=== PATIENT | female | born 1950 | race Caucasian/White ===

== ENCOUNTER 2018-09-13 16:07 | Emergency (ER) | payer MEDICARE ==
[~2018-09-13] VITALS: Ht 157.5 cm; Wt 99.8 kg
[2018-09-13 16:30] VITALS: BP_SYST 126
[2018-09-13 17:30] LABS: BASOPHILS % (AUTO) 0.2 % (0.0-2.0); HEMATOCRIT 37.5 % (36-48); HEMOGLOBIN 11.9 g/dL (12.0-16.0); LYMPHOCYTES # (AUTO) 0.7 K/uL (1.0-5.5); LYMPHOCYTES % (AUTO) 4.2 % (20.5-51.5); MEAN CORPUSCULAR HEMOGLOBIN 30 pg (27-31); MEAN CORPUSCULAR HGB CONC 32 % (32-36); MEAN CORPUSCULAR VOLUME 93 fL (79.0-98.0); MONOCYTES # (AUTO) 0.9 K/uL (0.0-1.0); MONOCYTES % (AUTO) 5.4 % (1.7-9.3); NEUTROPHILS # (AUTO) 14.5 K/uL (1.8-7.7); NEUTROPHILS % (AUTO) 90.2 % (40.0-70.0); PLATELET COUNT (AUTO) 178 K/uL (130-430); RED BLOOD CELL COUNT(AUTO) 4.03 MIL/uL (4.2-6.2); WHITE BLOOD COUNT (AUTO) 16.1 K/uL (4.8-10.8)
[2018-09-13 17:43] LABS: CALCIUM 9.1 mg/dL (8.4-11.0); CREATININE 1.22 mg/dL (0.55-1.30); POTASSIUM 4.5 mmol/L (3.5-5.1)
[2018-09-13 17:47] LABS: ALBUMIN 2.3 g/dL (3.4-4.8); INR 1.5 (0.8-1.2); PROTHROMBIN TIME 15.2 SECS (9.5-12.5); TOTAL BILIRUBIN 1.2 mg/dL (0.0-1.0)
[2018-09-13] MEDS ORDERED: DILTIAZEM HCL 25 MG/5 ML VIAL IVP ONE (18:15)
[2018-09-13] MEDS ORDERED: PIPERACILLIN/TAZO 3.375 GM in NS 50 ML IV ONE (18:15)
[2018-09-13] MEDS ORDERED: metroNIDAZOLE 500 mg/NS 100 ML IV ONE (18:15)
[2018-09-13] MEDS ORDERED: NACL 0.9% 1,000 ML IV ONE (18:45)
[2018-09-13] MEDS ORDERED: DILTIAZEM HCL 25 MG/5 ML VIAL IVP PRN (19:15)
[2018-09-13] MEDS ORDERED: METOPROLOL SUCCINATE 25 MG TAB.SR.24H (TOPROL XL) PO ONE (19:15)
[2018-09-13] MEDS ORDERED: PIPERACILLIN/TAZOBACTAM 3.375 GM/VIAL (ZOSYN) IV ONE (19:30)
[2018-09-13 20:26] VITALS: BP_SYST 142
== END 2018-09-13 20:26 | disposition short-term general hospital (02) ==
LOC: SED 16:07
DX: K57.80 Diverticulitis of intestine, part unspecified, with perforation and abscess without bleeding (principal); I48.2 Chronic atrial fibrillation; J18.9 Pneumonia, unspecified organism
CPT/HCPCS: 36415; 71045; 74176; 80053; 82150; 82550; 83605; 83690; 83880; 84484; 85025; 85610; 85730; 93005; 96365; 96367; 96375; 99285; J2543; J3490 ×2

== ENCOUNTER 2018-11-05 22:00 | Emergency (ER) | payer MEDICARE ==
[~2018-11-05] VITALS: Ht 167.6 cm; Wt 113.4 kg
[2018-11-05 22:07] VITALS: BP_SYST 126
[2018-11-05] MEDS ORDERED: ONDANSETRON HCL 4 MG/2 ML VIAL IVP ONE (22:30)
[2018-11-05] MEDS ORDERED: TACR0.5C PO (22:41)
[2018-11-05] MEDS ORDERED: MULT-1117 PO (22:41)
[2018-11-05] MEDS ORDERED: FAMO20TA8 PO (22:41)
[2018-11-05] MEDS ORDERED: LISI-209 PO (22:41)
[2018-11-05] MEDS ORDERED: CALC0.258 PO (22:41)
[2018-11-05] MEDS ORDERED: CEL250 PO (22:41)
[2018-11-05] MEDS ORDERED: PRED5TAB PO (22:41)
[2018-11-05] MEDS ORDERED: METO25TA3 PO (22:41)
[2018-11-05] MEDS ORDERED: FURO-150 PO (22:41)
[2018-11-05] MEDS ORDERED: MAGN400T10 PO (22:41)
[2018-11-05] MEDS ORDERED: SYN75 PO (22:41)
[2018-11-05] MEDS ORDERED: DABI150C PO (22:41)
[2018-11-05] MEDS ORDERED: FOLI-43 PO (22:43)
[2018-11-05 22:49] LABS: BASOPHILS % (AUTO) 0.3 % (0.0-2.0); EOSINOPHILS % (AUTO) 0.3 % (0.0-4.0); HEMATOCRIT 35.1 % (36-48); HEMOGLOBIN 11.6 g/dL (12.0-16.0); LYMPHOCYTES # (AUTO) 0.9 K/uL (1.0-5.5); LYMPHOCYTES % (AUTO) 11.8 % (20.5-51.5); MEAN CORPUSCULAR HEMOGLOBIN 30 pg (27-31); MEAN CORPUSCULAR HGB CONC 33 % (32-36); MEAN CORPUSCULAR VOLUME 91 fL (79.0-98.0); MONOCYTES # (AUTO) 0.5 K/uL (0.0-1.0); MONOCYTES % (AUTO) 6.5 % (1.7-9.3); NEUTROPHILS # (AUTO) 6.4 K/uL (1.8-7.7); NEUTROPHILS % (AUTO) 81.1 % (40.0-70.0); PLATELET COUNT (AUTO) 278 K/uL (130-430); RED BLOOD CELL COUNT(AUTO) 3.85 MIL/uL (4.2-6.2); RED CELL DISTRIBUTION WIDTH 18.7 % (9.0-15.0); WHITE BLOOD COUNT (AUTO) 7.9 K/uL (4.8-10.8)
[2018-11-05] MEDS: MORPHINE 2 MG/ML INJ. SYRINGE IVP ONE ×2 (22:54→23:09)
[2018-11-05 23:00] LABS: CALCIUM 8.8 mg/dL (8.4-11.0); CREATININE 1.5 mg/dL (0.55-1.30); POTASSIUM 5.3 mmol/L (3.5-5.1)
[2018-11-05 23:06] LABS: ALBUMIN 2.1 g/dL (3.4-4.8); TOTAL BILIRUBIN 0.7 mg/dL (0.0-1.0)
[2018-11-06] MEDS ORDERED: PIPERACILLIN/TAZO 3.375 GM in NS 50 ML IV ONE (00:30)
[2018-11-06] MEDS ORDERED: PIPERACILLIN/TAZOBACTAM 3.375 GM/VIAL (ZOSYN) IV ONE ×2 (00:45→00:46)
[2018-11-06] MEDS ORDERED: MORPHINE 2 MG/ML INJ. SYRINGE IVP ONE ×2 (01:00→02:45)
[2018-11-06 03:09] VITALS: BP_SYST 107
== END 2018-11-06 03:07 | disposition short-term general hospital (02) ==
LOC: SED 22:00
DX: K57.92 Diverticulitis of intestine, part unspecified, without perforation or abscess without bleeding (principal); Z79.899 Other long term (current) drug therapy; Z88.8 Allergy status to other drugs, medicaments and biological substances
CPT/HCPCS: 36415; 74176; 80053; 83605; 83690; 83880; 84484; 85025; 87040; 96365; 96375 ×2; 96376; 99285; J2270 ×2; J2405; J2543